=== PATIENT | female | born 1950 | race Caucasian/White ===

== ENCOUNTER → 2017-01-19 | Outpatient (CLI) | payer MEDICARE, OTHER ==
[~2017-01-19] MED LIST: ALDACTONE PO; ALPRAZOLAM PO; AMARYL; AMARYL PO; AMARYL2 MG PO; AMIODARONE PO; ASPIRIN EC81 M1 PO; ASPIRIN PO; ATORVASTATIN CA40 MG PO; AVANDARYL PO; AVANDIA; AVAPRO PO; CLOPIDOGREL75 MG PO; CORDARONE200 M1 PO; COUMADIN; COUMADIN PO; CRESTOR PO; CYANOCOBAL1000 MCG/M INJ; EFFEXOR XR; FOLIC ACID PO; FOLIC ACID1 MG PO; HUMULIN R100 UNIT/1 SUBQ; HYDRALAZINE HCL25 MG PO; IMDUR-ER30 M1 PO; IMDUR30 MG PO; KCL PO; LANOXIN PO; LANOXIN125 MCG PO; LASIX PO; LEVOTHYROXINE75 MC1 PO; LEXAPRO PO; LISINOPRIL5 MG PO; LOVASA PO; LOVENOX SUBQ; METFORMIN PO; NOVOLIN N100 UNIT/1 SUBQ; NOVOLIN R100 UNITS/ SUBQ; ONGLYZA5 MG PO; SPIRIVA18 MCG INH; THEO-DUR300 MG PO; THEOPHYLLIN PO; TOPROL XL PO; TOPROL XL100 MG PO; VIIBRYD40 MG PO; VITAMIN D350000 UNIT PO; WELCHOL625 MG; XANAX1 MG PO; ZETIA
[2017-01-19 09:44] LABS: ALBUMIN SERUM 3.1 g/dL (3.5-5.0); BILIRUBIN,TOTAL 0.4 mg/dL (0.2-2.0); BUN/CREATININE RATIO 12.33; CALCIUM SERUM 8.7 mg/dL (8.4-10.2); GLOM FILT RATE Estimated 16.6 mL/min (>60); PHOSPHOROUS 5.3 mg/dL (2.5-4.6); POTASSIUM 4.7 mmol/L (3.5-5.1); PROTEIN TOTAL SERUM 5.8 g/dL (6.0-8.3); URIC ACID 7.2 mg/dL (2.6-7.2)
[2017-01-22 23:44] LABS: CALCIUM (PTHINTACT) 8.8 mg/dL (8.6-10.4)
== END | disposition home or self-care (01) ==
LOC: CLAB 08:28
PROVIDERS: Internal Medicine Nephrology
DX: N18.4 Chronic kidney disease, stage 4 (severe) (principal); N25.81 Secondary hyperparathyroidism of renal origin
CPT/HCPCS: 36415; 80053; 82310; 83970; 84100; 84550

== ENCOUNTER → 2017-02-04 | Outpatient (CLI) | payer MEDICARE, OTHER ==
[2017-02-04 10:09] LABS: ALBUMIN SERUM 2.8 g/dL (3.5-5.0); BILIRUBIN,TOTAL 0.4 mg/dL (0.2-2.0); BUN/CREATININE RATIO 15.35; CREATININE SERUM 2.8 mg/dL (0.6-1.4); DIGOXIN (LANOXIN) 0.8 ng/ml (1.0-2.0); GLOM FILT RATE Estimated 16.8 mL/min (>60); PHOSPHOROUS 4.2 mg/dL (2.5-4.6); POTASSIUM 4.1 mmol/L (3.5-5.1); PROTEIN TOTAL SERUM 5.5 g/dL (6.0-8.3)
[2017-02-04 10:13] LABS: URINE APPEARANCE CLEAR; URINE BILIRUBIN NEG (NEG); URINE BLOOD TRACE (NEG); URINE COLOR YELLOW; URINE GLUCOSE NEG (NEG); URINE KETONE NEG (NEG); URINE LEUKOCYTE ESTERASE NEG (NEG); URINE NITRATE NEG (NEG); URINE PROTEIN 3+ (NEG); URINE SPECIFIC GRAVITY 1.023 (1.003-1.035); URINE UROBILINOGEN 0.2 MG/DL (NEG)
[2017-02-04 10:15] LABS: URINE BACTERIA AUWI NEG (NEGATIVE); URINE SQUAMOUS EPITHELIAL CELL FEW /[HPF]
[2017-02-04 10:48] LABS: URINE AMORPHOUS SEDIMENT AMORP URATES
[2017-02-04 10:50] LABS: URINE SOURCE CLEAN CATCH
== END | disposition home or self-care (01) ==
LOC: CLAB 08:33
PROVIDERS: Internal Medicine Nephrology
DX: N17.9 Acute kidney failure, unspecified (principal); N18.4 Chronic kidney disease, stage 4 (severe)
CPT/HCPCS: 36415; 80053; 80162; 81003; 82550; 84100

== ENCOUNTER 2017-03-14 10:26 | Inpatient (IN) | payer MEDICARE, OTHER ==
--- NOTE | ~2017-03-14 | CO ---
Unit #: [id number] #: [id number] Patient: AINSLEY MCCONNELL [id number] [facility]. [place], [place] [address] [id number] I MR#: [id number] NAME: AINSLEY MCCONNELL. ROOM: 554 Age: 67 Sex: F Admission Date: 03/14/2017 : 1950 Attending Physician: Ronny Ma M.D. Primary Care Physician: Stevie Scott Jr., M.D. CONSULTATION REPORT REASON FOR CONSULTATION Volume overload in an end-stage renal disease patient. HISTORY OF PRESENT ILLNESS This very pleasant 67-year-old white female with new end-stage renal disease, presumably due to diabetes, has enrolled in a dialysis program Tuesday, , and Tuesday. Her last dialysis was Tuesday. She came in to the hospital today due to increasing shortness of breath and orthopnea. Her x-ray shows pulmonary edema. She also has 2 to 3+ pitting edema. She tells me that her lower extremity edema has been fairly constant and is not decreased with initiation of dialysis, but her shortness of breath did improve with starting dialysis, but then worsened yesterday. She also has had angioedema with lisinopril. PAST MEDICAL HISTORY 1. Cardiomyopathy. 2. Coronary artery disease. 3. AICD. 4. Hypertension. 5. Tunneled catheter placement. 6. COPD. PAST SURGICAL HISTORY Lumbar disk surgery, bilateral breast biopsies, AICD placement, cholecystectomy, right chest wall tunnel catheter placement, right knee surgery. HOME MEDICATIONS Lasix 40 mg b.i.d., levothyroxine 75 mcg daily, insulin as directed, Toprol-XL 100 mg daily, Viibryd 40 mg daily, Xanax 1 mg q.i.d., vitamin D3 of 5000 units weekly, ALLERGIES Lisinopril and Avapro. REVIEW OF SYSTEMS Positive for weight gain, orthopnea, shortness of breath. No chest pain or heart palpitations. No lightheadedness or dizziness. No vision changes. No nausea, vomiting, or diarrhea. She has had chronic pedal edema that is longstanding. PHYSICAL EXAMINATION VITAL SIGNS: Her weight is 64.8 kg; according to her dialysis unit, her dry weight is listed at 66.7 kg; blood pressure is 138/102; she is 89% on Unit #: [id number] #: [id number] Patient: AINSLEY MCCONNELL 4 L; temperature is 98; pulse is 110. GENERAL: This is an ill-appearing white female, who is alert and oriented. She is not in any acute distress, but is sitting up to breathe. HEENT: Extraocular muscles are intact. No eye drainage or icterus. Oropharynx is clear without lesion. NECK: Supple without JVD, thyromegaly, or carotid bruit. CHEST: Shows bilateral crackles. CARDIAC: S1 and S2 with tachycardia. She has an AICD in the left chest and a right tunnel catheter in the right chest wall that is clean, dry, and intact. ABDOMEN: Soft, nontender, nondistended. Positive bowel sounds. EXTREMITIES: Show 3+ pitting edema up to the knees. She has no cyanosis or clubbing. DIAGNOSTIC STUDIES LABORATORY RESULTS: Show a sodium of 140, potassium of 3.6, BUN of 41, creatinine 2.7, glucose is 63, albumin of 2.5. Hemoglobin of 12.5, white blood cell count 7.8, platelet count of 260. ASSESSMENT AND PLAN 1. New end-stage renal disease with volume overload. Her waste products and potassium are stable. Her acid-base levels are stable. Therefore, I am going to order a stat ultrafiltration only to remove 3 L as tolerated. I would like to remove more, but the patient recalls she had instability with a higher ultrafiltration at [place] recently. We can also do dialysis again tomorrow. Recommend fluid restriction as well as the stat dialysis treatment. 2. Diabetes with low blood sugars. This is likely a consequence of end-stage renal disease, and her insulin will probably have to be cut back. 3. Coronary artery disease with history of automatic implantable cardioverter-defibrillator. Cardiology is seeing her, and she has already had a 2D echo ordered from the emergency room and that has been completed. 4. Tunnel catheter. She is using this for dialysis. I will try to get her referred to a vascular surgeon. Thank you very much for allowing me to see Ainsley Mcconnell in consultation. We will follow closely with you. Dictated by... Devika Nicole M.D. OLE/josseline TD: 03/15/2017 06:30 JOB #: [id number] CONSULTATION REPORT Page 1 of 1 X Devika Nicole MD CONSULTATION REPORT
--- NOTE | ~2017-03-14 | EKG ---
PATIENT: AINSLEY MCCONNELL UNIT #: [id number] Ventricular Rate: 105 BPM Atrial Rate: 105 BPM P-R Interval: 162 ms QRS Duration: 96 ms Q-T Interval: 368 ms QTC Calculation(Bezet): 486 ms P [place]: 52 degrees Calculated R [place]: 45 degrees Calculated T [place]: -171 degrees Diagnosis Line: Sinus tachycardia with frequent Premature Diagnosis Line: ventricular complexes Diagnosis Line: Left ventricular hypertrophy Diagnosis Line: ST and T wave abnormality, consider inferolateral Diagnosis Line: ischemia Diagnosis Line: Abnormal ECG Diagnosis Line: No previous ECGs available Diagnosis Line: Confirmed by LUCIANO DAY MD ([id number]) on Diagnosis Line: 03/14/2017 11:30:01 PM INTERPRETING MD: BRANDIN
--- NOTE | ~2017-03-14 | DS ---
Unit #: [id number] #: [id number] Patient: AINSLEY MCCONNELL [id number] [place], [place] [address] [id number] I MR#: [id number] NAME: AINSLEY MCCONNELL. ROOM: [facility] Age: 67 Sex: F Admission Date: 03/14/2017 : 1950 Discharge Date: 03/16/2017 Attending Physician: Ronny Ma M.D. Primary Care Physician: Stevie Scott Jr., M.D. DISCHARGE SUMMARY DISCHARGE DIAGNOSES 1. Acute hypoxic respiratory failure. 2. Acute on chronic systolic heart failure. 3. Endstage renal disease. 4. Coronary artery disease. 5. Chronic obstructive pulmonary disease. 6. Pulmonary hypertension. HOSPITAL COURSE The patient is a 67-year-old female who presented to [facility] emergency department complaining of shortness of breath. Her symptoms were severe and progressive over 24 hours. In the emergency department she was noted to have a BNP of 4,948. The patient was started on fluid restriction, IV Lasix and a 2-dimensional echo was ordered. The patient's echo revealed a left ventricular ejection fraction of 10%-15%. In addition, she was noted to have a right ventricular systolic pressure of 48 mmHg. At this time the patient has been aggressively diuresed and her oxygen saturation, which had been in the 80s on room air upon presentation, were noted to be in the 90s on room air. She did, however, drop into the 80s with ambulation and has been discharged home with home O2. DISCHARGE MEDICATIONS 1. Vybriid 40 mg p.o. daily. 2. Atorvastatin 80 mg daily. 3. Xanax 1 mg p.o. q.i.d. 4. Metoprolol succinate 800 mg p.o. daily. 5. Lasix 40 mg p.o. b.i.d. 6. Humulin R 8 units in the morning, 4 units before dinner. 7. Novolin N 15 units in the morning and 14 units before dinner. 8. Aspirin 81 mg daily. 9. Plavix 75 mg daily. 10. Aldactone 25 mg daily. 11. Levothyroxine 75 mcg daily. 12. Imdur ER 60 mg daily. 13. Folic acid 1 mg p.o. daily. FOLLOWUP 1. The patient should follow up with Dr. Murphy in four to six weeks. 2. Additionally she should follow up with cardiac rehab. 1. Unit #: [id number] #: [id number] Patient: AINSLEY MCCONNELL Dictated by... Julianna Payan/carlene TD: 03/17/2017 08:57 JOB #: [id number] DISCHARGE SUMMARY Page 1 of 1 X Ronny Ma MD X DISCHARGE SUMMARY
--- NOTE | ~2017-03-14 | CO ---
Unit #: [id number] #: [id number] Patient: AINSLEY MCCONNELL [id number] [facility]. [id number] [facility]. [place], [place] [address] [id number] I MR#: [id number] NAME: AINSLEY MCCONNELL. ROOM: 71529 Age: 67 Sex: F Admission Date: 03/14/2017 : 1950 Attending Physician: Marcelle Joe M.D. Primary Care Physician: Stevie Scott Jr., M.D. Consultation Date: 03/14/2017 CONSULTATION REPORT CHIEF COMPLAINT Shortness of breath. REASON FOR CONSULTATION CHF and elevated troponin. HISTORY OF PRESENT ILLNESS The patient is a 67-year-old female who is known to Dr. Murphy at [facility]. In 2009, patient had a 2D echocardiogram which showed severe LV enlargement with severe dysfunction with an EF of 15%, trace AR, and moderate TR. The patient's records also indicate that the patient had a cardiac cath in 2005 which showed her left main had 30-40% distal stenosis, LAD was occluded and filled via collaterals, her ramus showed 70% ostial narrowing, the left circumflex showed no significant obstruction, her RCA was dominant with 50-60% distal narrowing, and EF was 30% to 35%. Patient reports that she had myocardial infarctions in 1994 and 2009. Also, in 2009 patient had a dobutamine Cardiolite stress test which showed LV dysfunction with regional wall motion abnormalities and EF of 20%. Additional past medical history includes ischemic cardiomyopathy, AICD, hypertension, diabetes, COPD, hypothyroidism, paroxysmal atrial fibrillation, YELENA allergy, and end-stage renal disease, on hemodialysis. The patient reports that she has recently been started on hemodialysis. Patient also reports that in February 2017 she was diagnosed with paroxysmal atrial fibrillation at [facility], however, was not started on any anticoagulation. Patient is a reformed smoker who quit four years ago. She reports that she quit vaping two years ago. Patient reports that she has been having increasing shortness of breath. She states that she has been compliant with her medicines and with hemodialysis. Patient denies chest pain. She states that she can be short of breath at rest or with activity. The patient apparently woke up short of breath this morning but did feel better when she sat up. Because of this acute shortness of breath, she presented to the emergency department. In the emergency department, patient's troponin was found to be 0.1, and her EKG showed sinus tachycardia with frequent premature ventricular complexes. Cardiology has been consulted for CHF and elevated troponin. PAST MEDICAL HISTORY 1. A 2D echocardiogram in 2009 showed severe LV enlargement with severe dysfunction and an EF of 15%, moderate MR, trace AR, and moderate TR. 2. Cardiac cath in 2005 showed left main 30-40% distal stenosis, LAD Unit #: [id number] #: [id number] Patient: AINSLEY MCCONNELL S occluded and filled via collaterals, ramus 70% ostial narrowing, left circumflex showed no significant obstruction, RCA dominant with 50-60% distal narrowing, and an EF of 30% to 35%. 3. Myocardial infarction in 1994 and 2009. 4. In April 2010, dobutamine Cardiolite stress test showed LV dysfunction with regional wall motion abnormalities and EF of 20%. 5. Ischemic cardiomyopathy. 6. Automatic implantable cardioverter-defibrillator. 7. Hypertension. 8. Diabetes. 9. Chronic obstructive pulmonary disease. 10. (1) . 11. End-stage renal disease, on dialysis Tuesdays, , and Saturdays. 12. YELENA allergy. 13. Paroxysmal atrial fibrillation on no anticoagulation. This was diagnosed in February 2017. 14. Reformed tobaccoism. 15. Quit vaping two years ago. PAST SURGICAL HISTORY 1. Cardiac catheterization as detailed above. 2. Tubal ligation. 3. Lumbar disc surgery. 4. Breast biopsies. 5. Automatic implantable cardioverter-defibrillator. 6. Cholecystectomy. 7. Right knee arthroscopy. ALLERGIES YELENA inhibitors and Avapro. HOME MEDICATIONS 1. Aspirin 81 mg p.o. daily. 2. Atorvastatin 40 mg p.o. daily. 3. Lanoxin 0.125 mg every other day. 4. Folic acid 1 mg p.o. daily. 5. Imdur-ER 30 mg p.o. daily. 6. Lasix 40 mg p.o. b.i.d. 7. Levothyroxine 75 mcg p.o. daily. 8. Novolin N 15 units subcutaneous every morning. 9. Novolin N 14 units subcutaneous before dinner. 10. Humulin R 8 units subcutaneous every morning. 11. Novolin R 4 units subcutaneous before dinner. 12. Toprol-XL 100 mg p.o. daily. 13. Viibryd 40 mg p.o. daily. 14. Vitamin D3 at 50,000 units p.o. weekly on Saturdays. 15. Xanax 1 mg p.o. 4 times daily p.r.n. FAMILY HISTORY Patient endorses a family history of coronary artery disease. SOCIAL HISTORY Patient states that she quit smoking four years ago and quit vaping two years ago. She denies alcohol or illicit drug abuse. REVIEW OF SYSTEMS A 10-point review of systems has been done and is considered otherwise Unit #: [id number] #: [id number] Patient: AINSLEY MCCONNELL negative unless indicated in the History of Present Illness. PHYSICAL EXAMINATION GENERAL: Patient is awake, alert, and in no acute distress. VITAL SIGNS: Temperature 98, heart rate 103, respirations 18, blood pressure 149/86, and she is oxygenating at 95%. HEENT: Head is atraumatic and normocephalic. Pupils are equal, round, and reactive. Extraocular movements are intact. No drainage from ears or nares. NECK: Supple. Trachea is midline. No lymphadenopathy or thyromegaly is appreciated. Normal carotid upstrokes. Positive JVD. CHEST: Lungs are diminished bilaterally with crackles in the left base. No wheezes or rhonchi. Patient has a tunneled catheter. CARDIOVASCULAR: S1 and S2, regular rate and rhythm. No murmurs, rubs, or gallops appreciated. ABDOMEN: Soft, nontender, and nondistended. Bowel sounds are positive in all four quadrants. SKIN: Appears to be warm, dry, and intact without any unusual rashes or lesions. EXTREMITIES: No clubbing or cyanosis. Patient has +2 bilateral lower extremity edema. NEUROLOGIC: Patient is alert and oriented x3. She is pleasant and conversant. No focal deficits. Cranial nerves II-XII appear to be intact. DIAGNOSTIC STUDIES LABORATORY: White blood cells 7.8, hemoglobin 12.5, hematocrit 39.6, and platelets 260,000. Sodium 140, potassium 3.6, chloride 100, CO2 of 30, BUN 41, creatinine 2.7, and glucose 63. Troponin is 0.1. BNP is 4948. Digoxin is 3. IMAGING: Chest x-ray shows moderately enlarged cardiac silhouette with bilateral interstitial change and small bilateral effusions most consistent with moderate congestive heart failure. Heart size is increased since January 2010. There is a right central venous port catheter with tip at junction of SVC and right atrium. There is a left subclavian dual-head pacer/AICD device with leads over the right atrium and right ventricle. ASSESSMENT 1. Acute on chronic systolic congestive heart failure with a left ventricular ejection fraction of 15%. 2. Fluid overload. 3. End-stage renal disease, on hemodialysis Tuesdays, , and Saturdays. 4. Ischemic cardiomyopathy with history of automatic implantable cardioverter-defibrillator. 5. Hypertension. 6. Hyperlipidemia. 7. Chronic obstructive pulmonary disease. 8. Hypothyroidism. 9. History of paroxysmal atrial fibrillation, not on anticoagulation, diagnosed in February 2017. 10. Reformed tobaccoism. PLAN For now, will continue patient on aspirin, Imdur, and Toprol. Will increase patient's Lipitor to 80 mg p.o. daily. Patient is allergic to YELENA inhibitors. Will request her most recent cath report from [facility]. Unit #: [id number] #: [id number] Patient: AINSLEY MCCONNELL Will do a lipid panel and a TSH. Will check an EKG in the morning. Will ask for nursing to do daily weights and strict I/Os. Will trend cardiac enzymes x2. Agree with Lasix 40 mg IV every 12 hours and will add Spironolactone. Dictated by... Betsy Ma A.P.R.N. for Deanna Valdovinos M.D. AM/am TD: 03/14/2017 22:12 JOB #: [id number] CONSULTATION REPORT Page 1 of 1 X Betsy Ma APRN X CONSULTATION REPORT
--- NOTE | ~2017-03-14 | EKG ---
PATIENT: AINSLEY MCCONNELL UNIT #: [id number] Ventricular Rate: 88 BPM Atrial Rate: 88 BPM P-R Interval: 168 ms QRS Duration: 92 ms Q-T Interval: 380 ms QTC Calculation(Bezet): 459 ms P [place]: 87 degrees Calculated R [place]: 99 degrees Calculated T [place]: -175 degrees Diagnosis Line: Sinus rhythm with occasional Premature ventricular Diagnosis Line: complexes Diagnosis Line: Rightward axis Diagnosis Line: Septal infarct (cited on or before 16-MAR-2017) Diagnosis Line: ST and T wave abnormality, consider inferolateral Diagnosis Line: ischemia Diagnosis Line: Left ventricular hypertrophy Diagnosis Line: Abnormal ECG Diagnosis Line: When compared with ECG of 14-MAR-2017 10:49, Diagnosis Line: Serial changes of Septal infarct Present Diagnosis Line: Confirmed by MARYANNE HAYNES MD ([id number]) on 03/17/2017 Diagnosis Line: 11:09:41 PM INTERPRETING MD: IVY ROSE
--- NOTE | ~2017-03-14 | CR72 ---
[facility] A Service of [facility] RADIOLOGY TEXT RESULTS PATIENT: AINSLEY MCCONNELL LOCATION: [facility] [id number] : [birth year] UNIT #: [id number] AGE: [address]: Marcelle Joe MD SEX: F ORDER DR: [id number] [facility] [address] [place], [place] [address] [id number] MR#: [id number] Acc #: [id number] NAME: AINSLEY MCCONNELL : 1950 SEX: F STUDY DATE/TIME: 03/14/2017 10:59 UNIT: KINA ROOM: STUDY DESCRIPTION: CR Chest Single View Portable Attending Physician: Won Khalil M.D. Ordering Physician: Won Khalil M.D. Primary Care Physician: Stevie Scott Jr., M.D. MEDICAL IMAGING REPORT This report is preliminary unless electronic signature is present EXAM Chest, portable, 03/14/2017, 1059 hours. CLINICAL HISTORY 67-year-old complaining of a 2-day history of shortness of air, history of CHF, history of stroke, and diabetes and hypertension. COMPARISON 01/05/2010 FINDINGS Portable upright chest demonstrates enlarged cardiac silhouette increased from 01/05/2010. There is diffuse bilateral mixed interstitial and airspace change, most consistent with edema. There is blunting of both costophrenic angles, likely small bilateral effusions. The findings are most consistent with moderate congestive failure. There is a right central venous catheter with tip at junction of SVC and right atrium. There is a left subclavian dual lead pacer/AICD device with leads over the right atrium and right ventricle. IMPRESSION 1. Moderately enlarged cardiac silhouette with bilateral interstitial change and small bilateral effusions, most consistent with moderate congestive heart failure. Heart size is increased from 01/05/2010. 2. There is a right central venous port catheter with tip at junction of SVC and right atrium. 3. There is a left subclavian dual lead pacer/AICD device with leads over the right atrium and right ventricle. Dictated by... Shannan Aguirre M.D. [facility] A Service of [facility] RADIOLOGY TEXT RESULTS PATIENT: AINSLEY MCCONNELL LOCATION: [facility] [id number] : [birth year] UNIT #: [id number] AGE: [address]: Marcelle Joe MD SEX: F ORDER DR: THIS IS AN ELECTRONICALLY VERIFIED REPORT Shannan Aguirre M.D. at 03/14/2017 2:28 PM MIKE/molina TD: 03/14/2017 12:35 JOB #: [id number] MEDICAL IMAGING REPORT Page 1 of 1 COPY
--- NOTE | ~2017-03-14 | HP ---
Unit #: [id number] #: [id number] Patient: AINSLEY MCCONNELL [id number] [facility]. [place], [place] [address] [id number] MR#: [id number] NAME: AINSLEY MCCONNELL. ROOM: Age: 67 Sex: F Admission Date: 03/14/2017 : 1950 Attending Physician: Won Khalil M.D. Primary Care Physician: Stevie Scott Jr., M.D. HISTORY AND PHYSICAL CHIEF COMPLAINT Short of air. HISTORY OF PRESENT ILLNESS The patient is a 67-year-old female with a past medical history of CHF, end-stage renal disease, on dialysis, diabetes, hypertension, hyperlipidemia, coronary artery disease, and COPD, who presented to the emergency department for evaluation of the above. The patient states that she has been intermittently short of breath since February 24, 2017. She states that she became acutely short of breath within the past 24 hours. She has had paroxysmal nocturnal dyspnea. She reports dyspnea on exertion with minimal activity. She denies orthopnea. She has had lower extremity edema again since around February 24. She denies any change in her weight. She denies any chest pain, no fever, and no cough. She states that she does still void one to two times daily. She denies any diarrhea or constipation and no abdominal pain. She has been taking her medications as prescribed but did not take any medications this morning. Upon arrival in the emergency department, the patient's initial pulse and blood pressure were 110 and 138/102, respectively, and oxygen saturation was 89% on four liters. Chest x-ray shows findings concerning for fluid overload. BNP is 4948. BUN and creatinine 41 and 2.7, respectively. She is being admitted to [facility] for evaluation and further treatment. Also of note, the patient's troponin is 0.1. EKG shows T wave inversion in lateral leads. There is no old EKG for comparison. She is being admitted to [facility] for evaluation and further treatment. PAST MEDICAL HISTORY 1. Admission to [facility] in February of 2017 for end stage renal disease. She was started on dialysis during that admission (no records). 2. End stage renal disease, on dialysis Tuesday, , Tuesday with the last dialysis being March 12, 2017. She is followed by Dr. See. 3. Congestive heart failure. The patient sees Dr. Murphy. There is an echocardiogram in [facility] from March 09, 2010, that showed severely dilated left ventricle with moderate concentric left ventricular hypertrophy, sever global hypokinesis with a very large anteroseptal and apical NV. I don't see an ejection fraction noted on that particular echocardiogram. However, per Dr. Murphy's consultation Unit #: [id number] #: [id number] Patient: AINSLEY MCCONNELL S note from September 08, 2010, the patient's ejection fraction was noted to be 15% or less. Again, she sees Dr. Murphy. 4. Coronary artery disease. The patient had a cardiac catheterization on July 06, 2006, that showed severe multivessel disease. The plan at that time was aggressive medical management. The patient denies ever having any stents placed. She has had myocardial infarctions in 1994 and 2009. 5. Hypertension. 6. Hyperlipidemia. 7. Diabetes. PAST SURGICAL HISTORY 1. Cardiac catheterization July 06, 2006, showed multi-vessel coronary artery disease, severe. 2. Bilateral tubal ligation. 3. Back surgery. 4. Breast biopsy. 5. ICD placement. 6. Cholecystectomy. 7. Right knee surgery. SOCIAL HISTORY The patient lives with her . She quit smoking two weeks ago. There is no alcohol use. She is currently walking without assistance. Her code status is a Full Code. FAMILY HISTORY Notable for her mother dying of a myocardial infarction at the age of 59. Her dad had leukemia. ALLERGIES YELENA inhibitors. HOME MEDICATIONS 1. Aspirin 81 mg daily. 2. Atorvastatin 40 mg daily. 3. Digoxin 0.125 mg every other day. 4. Folic acid 1 mg daily. 5. Imdur 30 mg daily. 6. Lasix 40 mg twice daily. 7. Levothyroxine 75 mcg daily. 8. Novolin N 15 units every morning, 14 units before dinner. 9. Humulin R 8 units every morning. 10. Novolin R 4 units before dinner. 11. Toprol XL 100 mg daily. 12. Viibryd 40 mg daily. 13. Vitamin D3 50,000 weekly. 14. Xanax 1 mg four times daily. REVIEW OF SYSTEMS A complete review of systems is negative except as indicated in the HPI. DIAGNOSTIC STUDIES CARDIOVASCULAR: EKG shows sinus tachycardia with frequent PVCs and a rate of 105 beats/minute. There is T wave inversion in leads V3 through V6. There is no old EKG for comparison. IMAGING: Chest x-ray shows findings concerning for fluid overload with Unit #: [id number] #: [id number] Patient: AINSLEY MCCONNELL S small bilateral pleural effusions. LABORATORY: Initial Accu-Chek was 65. Complete blood count is essentially normal. Troponin is 0.1. INR is 1.1. Lactic acid 1.2. Comprehensive metabolic panel notable for glucose of 63, BUN and creatinine 41 and 2.7 respectively. Calcium is 8.1 but corrects when albumin of 2.5 is accounted for. Total protein is 5.7, AST 47, alkaline phosphatase 110. BNP is 4948. Most recent Accu-Chek was 173. PHYSICAL EXAMINATION VITAL SIGNS: Temperature is 98, pulse 110, respirations 18, blood pressure 138/102. Oxygen saturation was 89% on 4L, currently 94%. GENERAL: The patient is a very pleasant female who is awake and alert, in no acute distress. HEENT: The head is atraumatic. Mucous membranes are moist. NECK: Supple. Trachea is midline. CARDIOVASCULAR: Regular rate and rhythm. LUNGS: Demonstrate scattered crackles. Breathing is mildly labored with conversation. ABDOMEN: Soft, nontender with bowel sounds present in all four quadrants. EXTREMITIES: 3+ pitting edema bilaterally. NEURO: The patient is awake and alert. She follows commands. PSYCH: Mood and affect are normal. The patient is cooperative. SKIN: Skin of examined areas is warm and dry. ASSESSMENT The patient is a 67-year-old female with: 1. Acute respiratory failure, hypoxic. 2. Congestive heart failure exacerbation: The patient does have end stage renal disease, on dialysis, but BNP is markedly elevated at 4948 with no old for comparison. She is on Lasix at home and still makes some urine. 3. Elevated troponin of 0.1 with nonspecific EKG changes. 4. End stage renal disease, on dialysis: The patient receives dialysis Tuesday, , Tuesday with last dialysis being March 12, 2017. She is followed by Dr. See. 5. Hypoglycemia: The patient's initial Accu-Chek was 65, most recently 173. She is diabetic. 6. Hypertension. 7. Hyperlipidemia. 8. Coronary artery disease with cardiac catheterization report as noted above. 9. Chronic obstructive pulmonary disease, not followed by a senior biostatistician. 10. Former smoker. PLAN 1. Admit to intermediate level. 2. 2 g sodium 1800 mL fluid restricted, heart healthy, consistent carb diet. 3. Supplemental oxygen. 4. P.r.n. Duo-Nebs. 5. Strict I's and O's. 6. Daily weights. 7. Lasix 40 mg IV q.12 hours with first dose now. 8. 2D echo. 9. TSH. Unit #: [id number] #: [id number] Patient: AINSLEY MCCONNELL 10. Check digoxin level. 11. Serial cardiac enzymes. 12. Nitro paste, 1/2 inch q.6 hours. 13. Aspirin, if not already given. 14. Consult Dr. Stapleton regarding CHF and elevated troponin. 15. Consult Dr. See regarding end stage renal disease and dialysis needs. 16. Frequent Accu-Cheks. 17. Hemoglobin A1c. 18. Hold insulin for now due to hypoglycemia. 19. Get records from [facility]. 20. Check magnesium and phosphorus levels. 21. manager of change/social work consult for home oxygen. 22. Repeat labs in the morning. 23. Additional workup and consultants based on above. Regarding code status, the patient is a Full Code. ADDITIONAL JOB #: [id number] Dictated by Julianna Rutherford/juliette TD: 03/14/2017 13:11 JOB #: [id number] HISTORY AND PHYSICAL Page 1 of 1 X Marcelle Joe MD HISTORY AND PHYSICAL
[~2017-03-14 10:26] MED LIST changes: -ALDACTONE PO; -ASPIRIN EC81 M1 PO; -ATORVASTATIN CA40 MG PO; -CLOPIDOGREL75 MG PO; -FOLIC ACID1 MG PO; -HUMULIN R100 UNIT/1 SUBQ; -IMDUR-ER30 M1 PO; -LEVOTHYROXINE75 MC1 PO; -NOVOLIN N100 UNIT/1 SUBQ; -NOVOLIN R100 UNITS/ SUBQ; -TOPROL XL100 MG PO; -VIIBRYD40 MG PO; -VITAMIN D350000 UNIT PO; -XANAX1 MG PO
[2017-03-14 10:56] LABS: BASOPHIL# 0.1 X10e3 (0-0.3); EOSINOPHIL% 0.5 % (0.0-7.0); HEMATOCRIT 39.6 % (35.0-45.0); HEMOGLOBIN 12.5 gm/dL (12.0-16.0); LYMPHOCYTE# 1.1 X10e3 (1.0-3.5); LYMPHOCYTE% 14.5 % (17.0-45.0); MEAN CELL VOLUME 88.9 FL (83-96); MEAN CORPUSCULAR HEMOGLOBIN 28.1 PG (28-34); MEAN CORPUSCULAR HGB CONC 31.6 g/dL (30-36); MEAN PLATELET VOLUME 8.8 FL (6.5-11.5); MONOCYTE# 0.6 X10e3 (0-1.0); MONOCYTE% 7.1 % (3.0-12.0); NEUTROPHIL% 76.9 % (40-75); PLATELET COUNT 260 X10e3 (140-420); RED BLOOD COUNT 4.46 X10e (3.90-5.30); WHITE BLOOD COUNT 7.8 X10e3 (4.0-10.5)
[2017-03-14 10:57] LABS: DIFF IND NO
[2017-03-14 11:06] LABS: POC - CKMB 2.6 ng/mL (0.0-7.9); POC - TROPONIN 0.1 ng/mL (<=0.05)
[2017-03-14 11:09] LABS: INR 1.1; PROTHROMBIN TIME (PATIENT) 11.3 SECONDS (9.6-11.5)
[2017-03-14 11:27] LABS: ALBUMIN SERUM 2.5 g/dL (3.5-5.0); BILIRUBIN, DIRECT 0.1 mg/dL (0.0-0.2); BILIRUBIN,INDIRECT 0.3 mg/dL (0.0-0.9); BILIRUBIN,TOTAL 0.4 mg/dL (0.2-2.0); BUN/CREATININE RATIO 15.18; CALCIUM SERUM 8.1 mg/dL (8.4-10.2); CREATININE SERUM 2.7 mg/dL (0.6-1.4); GLOM FILT RATE Estimated 17.5 mL/min (>60); POTASSIUM 3.6 mmol/L (3.5-5.1); PROTEIN TOTAL SERUM 5.7 g/dL (6.0-8.3)
[2017-03-14] MEDS ORDERED: ASPIRIN EC81 M1 PO (11:52)
[2017-03-14] MEDS ORDERED: ATORVASTATIN CA40 MG PO (11:53)
[2017-03-14] MEDS ORDERED: LANOXIN125 MCG PO (11:53)
[2017-03-14] MEDS ORDERED: FOLIC ACID1 MG PO (11:53)
[2017-03-14] MEDS ORDERED: LASIX PO (11:54)
[2017-03-14] MEDS ORDERED: LEVOTHYROXINE75 MC1 PO (11:54)
[2017-03-14] MEDS ORDERED: IMDUR-ER30 M1 PO (11:54)
[2017-03-14] MEDS ORDERED: NOVOLIN N100 UNIT/1 SUBQ ×2 (11:55→11:56)
[2017-03-14] MEDS ORDERED: NOVOLIN R100 UNITS/ SUBQ (11:57)
[2017-03-14] MEDS ORDERED: HUMULIN R100 UNIT/1 SUBQ (11:57)
[2017-03-14] MEDS ORDERED: VIIBRYD40 MG PO (11:58)
[2017-03-14] MEDS ORDERED: TOPROL XL100 MG PO (11:58)
[2017-03-14] MEDS ORDERED: VITAMIN D350000 UNIT PO (11:59)
[2017-03-14] MEDS ORDERED: XANAX1 MG PO (11:59)
[2017-03-14 17:45] LABS: %MB 5.3 % (0.0-4.0); MB 4.5 ng/ml
[2017-03-15 00:12] LABS: %MB 6.5 % (0.0-4.0); MB 4.9 ng/ml
[2017-03-15 05:33] LABS: BASOPHIL# 0.2 X10e3 (0-0.3); EOSINOPHIL# 0.1 X10e3 (0-0.7); HEMATOCRIT 35.2 % (35.0-45.0); HEMOGLOBIN 11.2 gm/dL (12.0-16.0); LYMPHOCYTE# 1.5 X10e3 (1.0-3.5); LYMPHOCYTE% 18.5 % (17.0-45.0); MEAN CELL VOLUME 88.9 FL (83-96); MEAN CORPUSCULAR HEMOGLOBIN 28.4 PG (28-34); MEAN PLATELET VOLUME 9.5 FL (6.5-11.5); MONOCYTE# 0.6 X10e3 (0-1.0); MONOCYTE% 7.1 % (3.0-12.0); NEUTROPHIL# 5.7 X10e3 (1.5-7.1); NEUTROPHIL% 71.4 % (40-75); PLATELET COUNT 229 X10e3 (140-420); RED BLOOD COUNT 3.96 X10e (3.90-5.30); WHITE BLOOD COUNT 8.1 X10e3 (4.0-10.5)
[2017-03-15 05:35] LABS: DIFF IND NO
[2017-03-15 06:03] LABS: BUN/CREATININE RATIO 12.5; CALCIUM SERUM 7.6 mg/dL (8.4-10.2); GLOM FILT RATE Estimated 25.2 mL/min (>60); MAGNESIUM 1.8 mg/dL (1.6-3.0); PHOSPHOROUS 3.8 mg/dL (2.5-4.6); POTASSIUM 3.7 mmol/L (3.5-5.1)
[2017-03-15 11:17] LABS: CHOLESTEROL 138 mg/dL (0-200); HDL CHOLESTEROL 46 mg/dL (35-95); LDL CHOLESTEROL 72 mg/dL (-130); LDL/HDL RATIO 2 RATIO (0-4); TRIGLYCERIDES 102 mg/dL (10-160)
[2017-03-16 03:46] LABS: HEMATOCRIT 34.9 % (35.0-45.0); HEMOGLOBIN 11.1 gm/dL (12.0-16.0); MEAN CELL VOLUME 88.7 FL (83-96); MEAN CORPUSCULAR HEMOGLOBIN 28.3 PG (28-34); MEAN CORPUSCULAR HGB CONC 31.9 g/dL (30-36); MEAN PLATELET VOLUME 8.5 FL (6.5-11.5); RED BLOOD COUNT 3.93 X10e (3.90-5.30); RED CELL DISTRIBUTION WIDTH 17.3 % (11.0-15.5); WHITE BLOOD COUNT 7.5 X10e3 (4.0-10.5)
[2017-03-16 04:13] LABS: BUN/CREATININE RATIO 12.08; CALCIUM SERUM 7.7 mg/dL (8.4-10.2); CREATININE SERUM 2.4 mg/dL (0.6-1.4); GLOM FILT RATE Estimated 20.2 mL/min (>60)
[2017-03-16] MEDS ORDERED: CLOPIDOGREL75 MG PO (14:20)
[2017-03-16] MEDS ORDERED: ALDACTONE PO (14:20)
== END 2017-03-16 17:25 | disposition home or self-care (01) | DRG 291 ==
LOC: CED 10:26 → CEDOF 12:32 → C5B 13:00 → CEDOF 13:00 → CED 13:00 → CEDOF 23:25 → C5B 23:25
PROVIDERS: Emergency Medicine; Family Medicine; Internal Medicine Cardiovascular Disease; Internal Medicine Nephrology
PROC: 5A1D60Z (ICD-10-PCS; principal; 2017-03-14)
DX: I13.2 Hypertensive heart and chronic kidney disease with heart failure and with stage 5 chronic kidney disease, or end stage renal disease (principal); N18.6 End stage renal disease; J96.01 Acute respiratory failure with hypoxia; E11.22 Type 2 diabetes mellitus with diabetic chronic kidney disease; E11.649 Type 2 diabetes mellitus with hypoglycemia without coma; I27.2 Other secondary pulmonary hypertension; I50.23 Acute on chronic systolic (congestive) heart failure; I24.9 Acute ischemic heart disease, unspecified; Z99.2 Dependence on renal dialysis; Z87.891 Personal history of nicotine dependence; Z79.4 Long term (current) use of insulin; I25.10 Atherosclerotic heart disease of native coronary artery without angina pectoris; I25.5 Ischemic cardiomyopathy; E03.9 Hypothyroidism, unspecified; I48.0 Paroxysmal atrial fibrillation; Z95.810 Presence of automatic (implantable) cardiac defibrillator; J44.9 Chronic obstructive pulmonary disease, unspecified; E78.5 Hyperlipidemia, unspecified; Z79.82 Long term (current) use of aspirin; Z88.8 Allergy status to other drugs, medicaments and biological substances; Z90.49 Acquired absence of other specified parts of digestive tract; Z98.51 Tubal ligation status; Z80.6 Family history of leukemia; Z82.49 Family history of ischemic heart disease and other diseases of the circulatory system
CPT/HCPCS: 36415; 71010; 80048; 80061; 80076; 80162; 82550; 82553; 82947; 83036; 83605; 83735; 83880; 84100; 84443; 84484; 85025; 85027; 85610; 85730; 87040; 93005; 93306; 94640; 94760; 99291; J1644; J1815; J1940